=== PATIENT | male | born 1990 | race Hispanic/Latino ===

== ENCOUNTER 2017-11-11 21:37 | Emergency (ER) | payer SELFPAY ==
[~2017-11-11] VITALS: Ht 170.2 cm; Wt 89.4 kg
[~2017-11-11 21:37] MED LIST: AMOXICILLIN500 MG PO; BACTRIM DS1 TAB PO; BENADRYL 50MG C50 MG PO; BENTYL10 MG PO; ELIMITE60 GM EX; FLONASE NASAL50 MCG; IBUPROFEN600 MG PO; IMODIUM2 MG PO; MUCINEX D1 TAB PO; ULTRAM50 M1 PO; ZOFRAN4 MG/TAB PO
[2017-11-11 22:54] LABS: HEMATOCRIT 41.6 % (39.0-50.0); HEMOGLOBIN 13.7 g/dl (14.0-18.0); IMMATURE GRANULOCYTES 0.4 % (0.0-1.0); MEAN CELL VOLUME 87.8 fL CALC (80.0-100.0); MEAN CORPUSCULAR HGB 28.9 pG CALC (26.0-32.0); MEAN CORPUSCULAR HGB CONC 32.9 g/L CALC (32.0-36.0); NEUT# 7.22 thou/uL (1.82-7.42); RED BLOOD COUNT 4.74 mill/uL (4.70-6.10); RED CELL DISTRI WIDTH 13.8 % (11.5-15.5)
[2017-11-11 23:04] LABS: INFLUENZA A NONE DETECTED (NONE DETECT); INFLUENZA B NONE DETECTED (NONE DETECT)
[2017-11-11 23:12] LABS: ALBUMIN 4.3 g/dL (3.2-5.0); ALKALINE PHOSPHATASE 122 u/l (38-126); ANION GAP 19 (6-22 (CALC)); BILIRUBIN, TOTAL 0.4 mg/dL (0.0-1.4); BUN 12 mg/dL (9-20); BUN/CREATININE RATIO 13 (12-20 (CALC)); CARBON DIOXIDE 23 mmol/l (22-30); CHLORIDE 102 mmol/l (95-108); CREATININE 0.9 mg/dL (0.7-1.3); GFR > 60 ML/MIN (>=60 (CALC)); GFR FOR AFR.AMER. > 60 ML/MIN (>=60 (CALC)); POTASSIUM 4.1 mmol/l (3.5-5.1); SGOT/AST 34 u/l (17-59); SGPT/ALT 73 u/l (21-72); SODIUM 139 mmol/l (137-146); TOTAL PROTEIN 7.8 g/dL (6.3-8.2)
[2017-11-12 00:06] LABS: URINE BILIRUBIN - DIPSTICK NEGATIVE (NEGATIVE); URINE BLOOD DIPSTICK TRACE-INTACT (NEGATIVE); URINE COLOR YELLOW; URINE GLUCOSE - DIPSTICK NEGATIVE (NEGATIVE); URINE KETONE NEGATIVE (NEGATIVE); URINE LEUK ESTERASE NEGATIVE (NEGATIVE); URINE NITRITE - DIPSTICK NEGATIVE (Negative); URINE PROTEIN - DIPSTICK NEGATIVE (NEG-TRACE); URINE UROBILINOGEN - DIPSTICK >=8.0 E.U./dL (0.2)
[2017-11-12 00:08] LABS: URINE CLARITY CLEAR
[2017-11-12] MEDS ORDERED: ZITHROMAX250 MG PO (01:13)
[2017-11-12 01:26] VITALS: BP 124/73
== END 2017-11-12 01:34 | disposition home or self-care (01) | DRG 153 ==
LOC: ED 21:37
PROVIDERS: Emergency Medicine
DX: J06.9 Acute upper respiratory infection, unspecified (principal); J02.9 Acute pharyngitis, unspecified; F17.210 Nicotine dependence, cigarettes, uncomplicated

== ENCOUNTER 2018-08-15 12:51 | Emergency (ER) | payer SELFPAY ==
[~2018-08-15] VITALS: Ht 170.2 cm; Wt 85.0 kg
[~2018-08-15 12:51] MED LIST changes: +ZITHROMAX250 MG PO
[2018-08-15] MEDS ORDERED: TORADOL PO (13:10)
[2018-08-15] MEDS ORDERED: AMOXICILLIN500 MG PO (13:10)
[2018-08-15 13:15] VITALS: BP 151/74
== END 2018-08-15 13:15 | disposition home or self-care (01) | DRG 153 ==
LOC: ED 12:51
DX: J02.9 Acute pharyngitis, unspecified (principal); F17.200 Nicotine dependence, unspecified, uncomplicated

== ENCOUNTER 2020-12-12 02:23 | Emergency (ER) | payer SELFPAY ==
[~2020-12-12 02:23] MED LIST changes: +TORADOL PO
[2020-12-12] MEDS ORDERED: AMOXICILLIN500 MG PO ×2 (02:51→11:11)
[2020-12-12] MEDS ORDERED: MOTRIN800 MG PO (02:51)
[2020-12-12 02:56] VITALS: BP 120/78
== END 2020-12-12 03:06 | disposition home or self-care (01) | DRG 153 ==
LOC: ED 02:23
DX: J02.9 Acute pharyngitis, unspecified (principal); I10 Essential (primary) hypertension; F17.210 Nicotine dependence, cigarettes, uncomplicated

== ENCOUNTER 2020-12-18 11:17 | Emergency (ER) | payer SELFPAY ==
[~2020-12-18] VITALS: Ht 170.2 cm; Wt 104.0 kg
[~2020-12-18 11:17] MED LIST changes: +MOTRIN800 MG PO
[2020-12-18 12:31] LABS: HEMATOCRIT 44.9 % (39.0-50.0); HEMOGLOBIN 14.3 g/dl (14.0-18.0); IMMATURE GRANULOCYTES 0.6 % (0.0-5.0); MEAN CELL VOLUME 86.3 fL CALC (80.0-100.0); MEAN CORPUSCULAR HGB 27.5 pG CALC (26.0-32.0); MEAN CORPUSCULAR HGB CONC 31.8 g/dL CAL (32.0-36.0); NEUT# 6.81 thou/uL (1.82-7.42); RED BLOOD COUNT 5.2 mill/uL (4.70-6.10); RED CELL DISTRI WIDTH 14.2 % (11.5-15.5)
[2020-12-18 12:37] LABS: ANION GAP 16 (6-22 (CALC)); BUN 14 mg/dL (9-20); BUN/CREATININE RATIO 21 (12-20 (CALC)); CARBON DIOXIDE 24 mmol/l (22-30); CHLORIDE 102 mmol/l (95-108); CREATININE 0.7 mg/dL (0.7-1.3); GFR > 60 ML/MIN (>=60 (CALC)); GFR FOR AFR.AMER. > 60 ML/MIN (>=60 (CALC)); POTASSIUM 4.2 mmol/l (3.5-5.1); SODIUM 138 mmol/l (137-146)
[2020-12-18 12:55] VITALS: BP 107/58
[2020-12-18] MEDS ORDERED: MECLIZINE25 MG PO (13:07)
== END 2020-12-18 13:15 | disposition home or self-care (01) | DRG 149 ==
LOC: ED 11:17
PROVIDERS: Family Medicine
DX: H81.10 Benign paroxysmal vertigo, unspecified ear (principal); I10 Essential (primary) hypertension; F17.200 Nicotine dependence, unspecified, uncomplicated

== ENCOUNTER 2022-11-10 15:44 | Emergency (ER) | payer BC ==
[~2022-11-10] VITALS: Ht 170.2 cm; Wt 105.2 kg
[~2022-11-10 15:44] MED LIST changes: +MECLIZINE25 MG PO
[2022-11-10 17:35] VITALS: BP 120/80
== END 2022-11-10 17:45 | disposition home or self-care (01) | DRG 153 ==
LOC: ED 15:44
DX: J02.9 Acute pharyngitis, unspecified (principal); I10 Essential (primary) hypertension; Z20.822 Contact with and (suspected) exposure to COVID-19; F17.210 Nicotine dependence, cigarettes, uncomplicated
CPT/HCPCS: J0561

== ENCOUNTER 2024-09-05 08:01 | Emergency (ER) | payer OTHER ==
[~2024-09-05] VITALS: Ht 170.2 cm; Wt 105.0 kg
[2024-09-05 08:19] VITALS: BP 122/100
[2024-09-05] MEDS ORDERED: ORPHENADRINE CITRATE 30 MG/ML AMP IM ONE (08:20)
[2024-09-05] MEDS ORDERED: KETOROLAC TROMETHAMINE 30 MG/ML SDV IM ONE (08:20)
[2024-09-05 08:30] VITALS: BP 123/92
[2024-09-05 09:01] VITALS: BP 133/77
[2024-09-05 09:15] VITALS: BP 119/87
[2024-09-05] MEDS ORDERED: MIRALAX17 GM PO (09:21)
[2024-09-05] MEDS ORDERED: HYDROCO/APAP1 TA9 PO (09:21)
[2024-09-05] MEDS ORDERED: PREDNISONE50 MG PO (09:21)
[2024-09-05] MEDS ORDERED: COLACE100 MG PO (09:21)
[2024-09-05 09:31] VITALS: BP 124/87
[2024-09-05 09:33] VITALS: BP 124/87
== END 2024-09-05 09:45 | disposition home or self-care (01) | DRG 552 ==
LOC: ED 08:01
DX: M54.50 Low back pain, unspecified (principal); K59.00 Constipation, unspecified; I10 Essential (primary) hypertension
CPT/HCPCS: J2360